=== PATIENT | female | born 1985 | race Caucasian/White ===

== ENCOUNTER 2016-08-20 11:10 | Inpatient (IN) | payer BC ==
[~2016-08-20] VITALS: Ht 172.7 cm; Wt 100.5 kg
[~2016-08-20 11:10] MED LIST: CELEXA 20MG20 MG/TAB PO; MOTRIN 800800 MG/TAB PO; PRENATAL1 TA1 PO
[2016-10-02] VITALS (25 sets, daily range): BP systolic 96–177; BP diastolic 54–89; PULSE 58–90; TEMP 97.6–98.7
[2016-10-02 13:12] LABS: BASO % 0.2 % (0.0-2.0); EOS # 0.1 (0.0-0.7); EOS % 0.5 % (0-4.0); GRAN # 7.4 (1.4-6.5); GRAN % 74.5 % (42.2-75.2); LYMPH # 0.9 (1.2-3.4); LYMPH % 8.9 % (20.0-51.0); MEAN CELL VOLUME 71 fl (80.0-100.0); MEAN CORPUSCULAR HGB CONC 31 g/dl (33.0-37.0); MEAN PLATELET VOLUME 9.8 fl (7.4-10.4); MONO # 1.5 (0.1-0.6); MONO % 14.8 % (1.7-9.3); PLATELET COUNT 248 K/mm3 (130-400); RED BLOOD COUNT 5.16 M/mm3 (4.10-5.30); REDCELL DISTRIBUTION WIDTH-CV 18.4 % (11.5-14.5); WHITE BLOOD COUNT 9.9 K/mm3 (4.8-10.8)
[2016-10-02 13:17] LABS: HEMATOCRIT 36.8 % (37.0-47.0); HEMOGLOBIN 11.5 g/dl (12.5-16.0); MEAN CORPUSCULAR HEMOGLOBIN 22 pg (27.0-31.0)
[2016-10-02] MEDS ORDERED: LEXAPRO20 MG PO (17:51)
[2016-10-03 00:30] VITALS: BP 105/63; PULSE 84; TEMP 97.7
[2016-10-03 03:17] VITALS: BP 120/66; PULSE 82
[2016-10-03 08:30] VITALS: BP 140/80; PULSE 80; TEMP 97.8
[2016-10-03 16:30] VITALS: BP 121/74; PULSE 97; TEMP 98
[2016-10-03 19:00] VITALS: BP 122/78; PULSE 92; TEMP 98
[2016-10-04 08:39] VITALS: BP 135/88; PULSE 84; TEMP 97.9
[2016-10-04] MEDS ORDERED: IBU600 MG PO (08:56)
== END 2016-10-04 12:30 | disposition home or self-care (01) | DRG 775 ==
LOC: LDR 10-02 11:09 → OB 10-02 20:00 → EDSTATUS 10-07 11:07 → LDRO 10-07 11:10
PROVIDERS: Student in an Organized Health Care Education/Training Program
PROC: 10E0XZZ Delivery of Products of Conception, External Approach (ICD-10-PCS; principal; 2016-10-02)
PROC: 0KQM0ZZ Repair Perineum Muscle, Open Approach (ICD-10-PCS; 2016-10-02)
PROC: 3E033VJ Introduction of Other Hormone into Peripheral Vein, Percutaneous Approach (ICD-10-PCS; 2016-10-02)
DX: O13.3 Gestational [pregnancy-induced] hypertension without significant proteinuria, third trimester (principal); O26.843 Uterine size-date discrepancy, third trimester; O99.824 Streptococcus B carrier state complicating childbirth; O34.13 Maternal care for benign tumor of corpus uteri, third trimester; D25.9 Leiomyoma of uterus, unspecified; O70.1 Second degree perineal laceration during delivery; O69.2XX0 Labor and delivery complicated by other cord entanglement, with compression, not applicable or unspecified; Z3A.39 39 weeks gestation of pregnancy; Z37.0 Single live birth
CPT/HCPCS: J2540; J2590; J7120

== ENCOUNTER → 2019-01-27 | Outpatient (CLI) | payer BC ==
[~2019-01-27] MED LIST changes: +IBU600 MG PO; +LEXAPRO20 MG PO
== END ==
LOC: MC.RAD 08:00
DX: Z12.31 Encounter for screening mammogram for malignant neoplasm of breast (principal)

== ENCOUNTER → 2020-05-24 | Outpatient (CLI) | payer BC | LOC: MC.RAD | DX: Z12.31 Encounter for screening mammogram for malignant neoplasm of breast (principal) ==

== ENCOUNTER → 2021-07-10 | Outpatient (CLI) | payer BC | LOC: MC.RAD 09:00 | DX: Z12.31 Encounter for screening mammogram for malignant neoplasm of breast (principal) ==

== ENCOUNTER → 2023-08-13 | Outpatient (CLI) | payer BC | LOC: MC.RAD 07:19 | DX: Z12.31 Encounter for screening mammogram for malignant neoplasm of breast (principal) ==